=== PATIENT | female | born 1935 | race Caucasian/White ===

== ENCOUNTER 2020-11-18 22:29 | Inpatient (IN) | payer MEDICARE, BC ==
[~2020-11-18] VITALS: Ht 149.9 cm; Wt 51.7 kg
--- NOTE | 2020-11-18 22:35 | NUR ---
PT WAS BIBRA FOR C/O HIGH HR OF 150s. PT DENIED ANY CP OR SOB. WAS RECENTLY DISCHARGED FROM [facility] FOR CHF. A, OX4 , VERY PLEASANT AND RESPONSIVE TO ALL QUESTIONS. IN BED [address] ACED ON A MONITOR , EMT AT BED SIDE FOR ECG. DR BLUM AT BED SIDE FOR EVAL.
[2020-11-18] MEDS ORDERED: ADENOSINE 6 MG/2 ML VIAL ONE (22:45)
[2020-11-18 22:52] LABS: BASOPHILS # (AUTO) 0.1 /CMM (0.0-0.2); BASOPHILS % (AUTO) 1.2 % (0.0-2.0); EOSINOPHILS % (AUTO) 4.5 % (0.0-6.0); HEMATOCRIT 38 % (33-45); HEMOGLOBIN 12.3 g/dL (11.5-14.8); LYMPHOCYTES # (AUTO) 3.1 /CMM (0.8-4.8); LYMPHOCYTES % (AUTO) 36.8 % (20.0-44.0); MEAN CORPUSCULAR HGB CONC 33 g/dl (31.0-36.0); MEAN CORPUSCULAR VOLUME 94 fL (82-100); MONOCYTES # (AUTO) 0.7 /CMM (0.1-1.30); MONOCYTES % (AUTO) 8.6 % (2.0-12.0); NEUTROPHILS # (AUTO) 4.2 /CMM (1.8-8.9); NEUTROPHILS % (AUTO) 48.9 % (43.0-81.0); PLATELET COUNT (AUTO) 277 /CMM (150-450); RED BLOOD CELL COUNT(AUTO) 3.98 MIL/uL (4.0-5.2); WHITE BLOOD COUNT (AUTO) 8.5 K/uL (4.3-11.0)
[2020-11-18] MEDS ORDERED: DILTIAZEM HCL 25 MG IV ONE ×2 (22:52→22:55)
[2020-11-18] MEDS ORDERED: DILTIAZEM HCL 50 MG IV IV ONE (23:00)
[2020-11-18] MEDS ORDERED: ADENOSINE 6 MG/2 ML VIAL IVP ONE (23:00)
[2020-11-18] MEDS ORDERED: DILTIAZEM HCL IV 125 MG in IV NS 0.9% 100 ML IV PRN (23:00)
[2020-11-18 23:03] LABS: CALCIUM, SERUM 9.3 mg/dL (8.5-10.1); CARBON DIOXIDE 25 mmol/L (21-32); CHLORIDE 108 mmol/L (98-107); CREATININE 1.4 mg/dL (0.6-1.3); GLUCOSE 121 mg/dL (74-106); POTASSIUM 4.5 mmol/L (3.5-5.1); SODIUM SERUM 142 mmol/L (136-145); UREA NITROGEN, BLOOD 33 mg/dL (7-18)
--- NOTE | 2020-11-18 23:06 | NUR ---
RAD AT BED SIDE
--- NOTE | 2020-11-18 23:14 | NUR ---
PT IN BED SW/ SON AT BED SIDE. REPORTED FEELING BETTER. REMAINED ON CONT RETIREMENT VILLAGE MANAGER W/ IRREGULAR HEART RATE FLUCTUATING BETWEEN 60 TO 80s. WILL CONT TO MONITOR
[2020-11-18 23:15] LABS: ALANINE AMINOTRANSFERASE 22 U/L (12-78); ALBUMIN 3.2 g/dL (3.4-5.0); ALKALINE PHOSPHATASE 71 U/L (46-116); ASPARTATE AMINOTRANSFERASE 26 U/L (15-37); BILIRUBIN,DIRECT 0.2 mg/dL (0.0-0.2); BILIRUBIN,TOTAL 0.4 mg/dL (0.2-1.0); NT-PRO BNP 733 pg/mL (0-125); TOTAL PROTEIN, SERUM 6.9 g/dL (6.4-8.2)
--- NOTE | 2020-11-18 23:30 | NUR ---
LAB CALLED REGARDING NEGATIVE COVID RESULT.
--- NOTE | 2020-11-18 23:35 | NUR ---
115-1 IS THE BED THE PT WILL BE GOING TO PER RN PAINT MIXER MACHINE.
--- NOTE | 2020-11-18 23:42 | NUR ---
PANEL PAGED PER ER MD ORDER.
--- NOTE | 2020-11-19 00:02 | NUR ---
REPORT GIVEN TO VIVI
[2020-11-19] MEDS ORDERED: GLUT1POW MC (00:20)
[2020-11-19] MEDS ORDERED: MELA3TAB41 PO (00:20)
[2020-11-19] MEDS ORDERED: MONT10TA22 PO (00:20)
[2020-11-19] MEDS ORDERED: MULT237L4 PO (00:20)
[2020-11-19] MEDS ORDERED: OLME20TA13 PO (00:20)
[2020-11-19] MEDS ORDERED: IBAN150T16 PO (00:20)
[2020-11-19] MEDS ORDERED: UBID200C35 PO (00:20)
[2020-11-19] MEDS ORDERED: CYAN500T72 PO (00:20)
[2020-11-19] MEDS ORDERED: ATOR40TA PO (00:20)
[2020-11-19] MEDS ORDERED: POTA20TA83 PO (00:20)
[2020-11-19] MEDS ORDERED: ASPI-1169 PO (00:20)
[2020-11-19] MEDS ORDERED: FERR325T23 PO (00:20)
[2020-11-19] MEDS ORDERED: VITA-354 PO (00:20)
[2020-11-19] MEDS ORDERED: LORA10TA7 PO (00:20)
[2020-11-19] MEDS ORDERED: CHOL200059 (00:20)
[2020-11-19] MEDS ORDERED: FURO-145 PO (00:20)
--- NOTE | 2020-11-19 00:50 | NUR ---
pt was transferred to 115 under acls
[2020-11-19] MEDS ORDERED: ENOXAPARIN SODIUM 40 MG/0.4 ML DISP.SYRIN SQ SCH (01:00)
[2020-11-19] MEDS ORDERED: ACETAMINOPHEN 325 MG TABLET PO PRN (01:00)
[2020-11-19] MEDS ORDERED: ZOLPIDEM TARTRATE 5 MG TABLET PO PRN (01:00)
[2020-11-19] MEDS ORDERED: BUMETANIDE INJ 0.25 MG/ML VIAL IV ONE (01:00)
[2020-11-19] MEDS ORDERED: ONDANSETRON HCL/PF 4 MG/2 ML VIAL IVP PRN (01:00)
[2020-11-19] MEDS ORDERED: Z GUARD REMEDY 2 OZ OINT TP PRN (01:00)
--- NOTE | 2020-11-19 01:03 | NUR ---
WEBSPHERE ARCHITECT NOTE RECEIVED PT FROM ER WITH THE DX OF NEW ONSET OF A fIB BY FLAVIO BOUDREAUX. PT IS A/O X 4, NO SOB, NO DISTRESS OR DISCOMFORT NOTED. DENIES PAIN.. SKIN INTACT. SL IN LFA AND LAC INTACT AND PATENT. ORIENTED PT TO HER ROOM. ALL NEEDS ATTENDED. SIDE RAILS UP X 3 AND CALL LIGHT WITHIN REACH. VSS. CONTINUE TO MONITOR HER. Addendum: 11/19/20 at 0508 by VIVI BUSTILLO RN ON TELE SR WITH BBB AND PVC BIGEMINI. HR UP AND DOWN FROM 130 TO 64
[2020-11-19 01:42] LABS: THYROID STIMULATING HORMONE 2.239 uIU/mL (0.358-3.74)
--- NOTE | 2020-11-19 01:45 | NUR ---
NAVAL GUNFIRE SPOTTER NOTE PT ON TELE MONITOR SR AND AT TIME GO BACK TO RAPID HR . CONTINUE TO MONITORING. ADMITTING ORDERS CHECKED AND CARRIED OUT. PT ON CARDIZAM DRIP STARTED IN ER. 5MG /HR.
--- NOTE | 2020-11-19 01:56 | NUR ---
PIPE CLEANER NOTE INFORMED ALBERT BOUDREAUX B/P WENT DOWN TO 106/41 AND HR 63. PER TIME CONTINUE TO GIVEN BUMEX AND LOPRESSOR AND DC CARDIZEM DRIP. ORDER NOTED AND CARRIED OUT.
[2020-11-19 02:00] VITALS: BP 125/50
[2020-11-19] MEDS: METOPROLOL TARTRATE 50 MG TABLET PO SCH ×3 (02:00→21:11)
--- NOTE | 2020-11-19 02:27 | NUR ---
FULL STACK DEVELOPER NOTE PT FALL BACK TO SLEEP, NO DISTRESS OR DISCOMFORT NOTED. HR 88.
[2020-11-19 04:00] VITALS: BP 110/61
--- NOTE | 2020-11-19 04:55 | NUR ---
GREASE MAKER NOTE PT B/P GOES UP AND DOWN 84/52 AND RECHECKED AFTER 1/2 HR 110/61. ALBERT BOUDREAUX DNP MADE AWARE OF THAT.
--- NOTE | 2020-11-19 05:24 | NUR ---
DIRECTOR OF INVESTIGATIONS NOTE ALBERT BOUDREAUX DNP INFORMED REGARDING LOVENOX ORDER, WHICH PER PHARMACY SHOULD BE 30 MG DAILY DUE TO RENAL ISSUES. PER ALBERT BOUDREAUX GO AHEAD GIVEN ORIGNAL ORDER 40 MG BID. FOR NOW. INFORMED PHARMACY AGAIN.
--- NOTE | 2020-11-19 05:48 | NUR ---
ANESTHESIOLOGY FACULTY NOTE UNABLE TO CLARIFY THE MED WITH DR BOUDREAUX AND PHARMACY, DR BOUDREAUX WANTS PHARMACY TO CALL HIM. NUMBER GIVEN TO PHARMACY NEKELLY TO CALL DR BOUDREAUX. WILL FOLLOW UP.
[2020-11-19] MEDS ORDERED: ENOXAPARIN SODIUM 40 MG/0.4 ML DISP.SYRIN SQ ONE (06:00)
--- NOTE | 2020-11-19 06:42 | NUR ---
PIPE AND TEST SUPERVISOR NOTE PT IN BED LOVENOX 40 MG SQ GIVEN. WILL ENDORSE TO DAY SHIFT NURSE TO FOLLOW UP WITH PHARMACY. REGARDING LOVENOX. ON TELE MONITOR SR 74 WITH PVC .
[2020-11-19] MEDS: LOSARTAN POTASSIUM 50 MG TABLET PO SCH (09:00)
--- NOTE | 2020-11-19 09:21 | NUR ---
PRELIMINARY ECHO SHOWED EF 20%~. ADVISED RN.
[2020-11-19] MEDS: ASPIRIN 81 MG TAB.CHEW PO SCH (09:54)
[2020-11-19] MEDS: MONTELUKAST SODIUM (10MG) 10 MG TABLET PO SCH (09:54)
--- NOTE | 2020-11-19 10:33 | NUR ---
Informed MD Naqvi regarding patient's bp of 96/53 and hr of 61. Per MD to hold am dose of losartan and metoprolol. Infomred regarding EF results of Echocardiogram.
[2020-11-19 16:37] LABS: BILIRUBIN,URINE NEGATIVE (NEGATIVE); COLOR,URINE YELLOW (YELLOW); LEUKOCYTE ESTERASE ,URINE TRACE (NEGATIVE); NITRITE, URINE NEGATIVE (NEGATIVE); PH,URINE 6.5 (5.0-8.0); PROTEIN,URINE NEGATIVE (NEGATIVE); UGLUCOSE NEGATIVE (NEGATIVE); UROBILINOGEN,URINE 0.2 EU/dL (0.2)
[2020-11-19 16:44] LABS: BACTERIA,URINE Few /HPF (None Seen); HYALINE CASTS, URINE Few /LPF (None Seen); RBC,URINE 0-2 /HPF (0-2); SQUAMOUS EPITHELIAL CELL,UR Few /HPF (None Seen); WBC,URINE 0-2 /HPF (0-3)
[2020-11-19 16:46] LABS: CREATININE, URINE 51.6 MG/DL (30.0-125.0); URINE TOTAL PROTEIN 7.9 mg/dL (0-11.9)
--- NOTE | 2020-11-19 19:30 | NUR ---
RN OPENING NOTES: RECEIVED PT A/OX4 IN BED RESTING COMFORTABLY. PATIENT IN NO S/SX OF ACUTE DISTRESS AT THIS TIME. NO SOB NOTED. PATIENT'S BREATHING IS EVEN AND UNLABORED. PATIENT IS ON 2L OF OXYGEN VIA NC; TOLERATING WELL. PATIENT ON TELE MONITORING READING SINUS RHYTHM HR IS @60S AT THE TIME OF RECEIVED. PATIENT ON CARDIAC DIET; TOLERATES WELL. NOTED IV SITE ON L HAND #20 AND L FA #20; BOTH PATENT, INTACT AND FLUSHING WELL; NO S/S OF INFECTION OR INFILTRATION. PT AMBULATORY AND WITH BRP. SAFETY MEASURES HAVE BEEN PROVIDED AND IMPLEMENTED. PATIENT BED ALARM IS ON. HEAD OF BED ELEVATED. BED IS LOCKED, IN LOWEST POSITION AND SIDE RAILS UP. CALL LIGHT WITHIN REACH OF THE PATIENT. APPLICABLE ISOLATION PRECAUTIONS IN PLACE. WILL CONTINUE TO MONITOR AND REASSESS FOR ANY CHANGES AND WILL CARRY OUT ANY ONGOING AND ACTIVE MD ORDER.
--- NOTE | 2020-11-19 19:41 | NUR ---
RN CLOSING NOTES Patient is alert and oriented. Patient is breathing even and unlabored. No c/o pain or discomfort. Patient's urine collected during shift for UA. Bed is in lowest and locked position. No c/o chest pain or dizziness. Endorsed to next shift for yusuf and to keep patient NPO for michi scan imaging in am for stress test.
[2020-11-19 20:00] VITALS: BP 108/49
[2020-11-19] MEDS: LORATADINE 10 MG TABLET PO SCH (21:11)
[2020-11-19] MEDS: ATORVASTATIN 40 MG TABLET PO SCH (21:11)
--- NOTE | 2020-11-19 23:00 | NUR ---
RN NOTES NO CHANGE IN PATIENT CONDITION AT THIS TIME PATIENT VITALS STABLE, NO SIGNS OF ACUTE RESPIRATORY DISTRESS. QUALITY SYSTEMS ENGINEER MADE AWARE. WILL CONTINUE TO MONITOR AND REASSESS FOR ANY CHANGES THROUGHOUT THE SHIFT.
[2020-11-20] VITALS: BP 103/51
--- NOTE | 2020-11-20 | NUR ---
RN NOTES PT PUT ON NPO IN PREPARATION FOR AM PROCEDURE. PERSONNEL TECHNICIAN MADE AWARE. WILL CONTINUE TO MONITOR AND ASSESS THROUGHOUT THE SHIFT.
[2020-11-20 00:38] LABS: EOSINOPHIL,URINE None Seen
[2020-11-20 04:00] VITALS: BP 100/40
--- NOTE | 2020-11-20 04:00 | NUR ---
RN NOTES PATIENT REMAINS IN NO ACUTE RESPIRATORY DISTRESS AT THIS TIME, NO CHANGES TO CONDITION/STATUS. AM PATIENT CARE DONE. SENIOR MARKET INTELLIGENCE CONSULTANT WELL AWARE. WILL CONTINUE TO MONITOR AND REASSESS FOR ANY CHANGES THROUGHOUT THE SHIFT
[2020-11-20 06:44] LABS: BASOPHILS # (AUTO) 0.1 /CMM (0.0-0.2); BASOPHILS % (AUTO) 1.9 % (0.0-2.0); EOSINOPHILS % (AUTO) 7.9 % (0.0-6.0); HEMATOCRIT 36 % (33-45); HEMOGLOBIN 11.7 g/dL (11.5-14.8); LYMPHOCYTES # (AUTO) 2.4 /CMM (0.8-4.8); LYMPHOCYTES % (AUTO) 35.6 % (20.0-44.0); MEAN CORPUSCULAR HGB CONC 33 g/dl (31.0-36.0); MEAN CORPUSCULAR VOLUME 95 fL (82-100); MONOCYTES # (AUTO) 0.5 /CMM (0.1-1.30); NEUTROPHILS # (AUTO) 3.2 /CMM (1.8-8.9); NEUTROPHILS % (AUTO) 47.6 % (43.0-81.0); PLATELET COUNT (AUTO) 260 /CMM (150-450); RED BLOOD CELL COUNT(AUTO) 3.73 MIL/uL (4.0-5.2); WHITE BLOOD COUNT (AUTO) 6.8 K/uL (4.3-11.0)
[2020-11-20 06:52] LABS: ALBUMIN 2.9 g/dL (3.4-5.0); BILIRUBIN,TOTAL 0.6 mg/dL (0.2-1.0); CALCIUM, SERUM 9.3 mg/dL (8.5-10.1); CREATININE 1.2 mg/dL (0.6-1.3); MAGNESIUM 2.1 mg/dL (1.8-2.4); POTASSIUM 4.1 mmol/L (3.5-5.1); TOTAL PROTEIN, SERUM 6.4 g/dL (6.4-8.2)
--- NOTE | 2020-11-20 06:57 | NUR ---
RN CLOSING NOTE: PATIENT REMAINS IN ROOM IN NO SIGNS OF RESPIRATORY DISTRESS, PATIENT STILL ON 2L OF O2 VIA NC;TOLERATING WELL SATURATING @ >95% SP02. SAFETY MEASURES IMPLEMENTED, BED IN LOWEST POSITION, LOCKED, SIDE RAILS UP, CALL LIGHT WITHIN REACH. ALL NEEDS AND ORDERS ADDRESSED DURING THE SHIFT. IV ACCESS MAINTAINED INTACT, SECURED AND FLUSHING WELL. ALL DUE MEDS GIVEN ORDERED & SCHEDULED ; PATIENT TOLERATED WELL. PATIENT KEPT CLEAN AND COMFORTABLE WITHIN THE SHIFT. PATIENT ENDORSED TO INCOMING SHIFT RN WITH STABLE VITAL SIGN AND FOR CONTINUITY OF CARE.
--- NOTE | 2020-11-20 07:30 | NUR ---
RN OPENING NOTES Patient is alert and oriented. Patient is breathing even and unlabored. No c/o pain or discomfort. Bed is in lowest and locked position. No c/o chest pain or dizziness. Patient to be NPO for LEXISCAN Stress test. Will monitor. Call light with in reach.
[2020-11-20 08:00] VITALS: BP 110/46
[2020-11-20] MEDS ORDERED: REGADENOSON 0.4 MG/5 ML DISP.SYRIN IVP ONE (08:00)
[2020-11-20] MEDS: ASPIRIN 81 MG TAB.CHEW PO SCH (09:00)
[2020-11-20] MEDS ORDERED: ENOXAPARIN SODIUM 30 MG/0.3 ML DISP.SYRIN SQ SCH (09:00)
--- NOTE | 2020-11-20 10:00 | NUR ---
Patient is out of the unit for michi scan test and was taken at apprx 9:50 am in stable condition. No c/o chest pain or dizziness. Vitals WNL. Addendum: 11/20/20 at 1028 by LILIANE NEWMAN RN Amended: Links added.
[2020-11-20] MEDS: LOSARTAN POTASSIUM 50 MG TABLET PO SCH (11:37)
[2020-11-20] MEDS: MONTELUKAST SODIUM (10MG) 10 MG TABLET PO SCH (11:38)
[2020-11-20] MEDS: METOPROLOL TARTRATE 50 MG TABLET PO SCH ×2 (11:40→21:56)
--- NOTE | 2020-11-20 11:56 | NUR ---
patient came back to unit vitals assessed and noted with HR of 127. Informed MD Naqvi and DENNIS Burrell.Patient given her morning meds for BP AND HR.Patient monitored closely.
[2020-11-20 12:00] VITALS: BP 104/61
[2020-11-20] MEDS ORDERED: DILTIAZEM HCL IV 125 MG in IV NS 0.9% 100 ML IV PRN (12:00)
[2020-11-20] MEDS: APIXABAN 5 MG TABLET PO SCH ×2 (13:56→21:57)
--- NOTE | 2020-11-20 14:35 | NUR ---
Patient started on cardizem drip per md Naqvi's orders for Afib with RVR
--- NOTE | 2020-11-20 15:34 | NUR ---
Patient noted with bp of 88/55, hr of 112 and 02 sat of 96% on 2liters of 02. Informed Dr Naqvi regarding patient's tele readings of sinus tachy and bp. Per md to hold cardizem drip for now. Medication held
[2020-11-20 16:00] VITALS: BP 96/54
--- NOTE | 2020-11-20 19:24 | NUR ---
RN CLOSING NOTES Patient is alert and oriented. Patient is breathing even and unlabored. No c/o pain or discomfort. Bed is in lowest and locked position. No c/o chest pain or dizziness, Patient is SR on tele with HR of 100bpm. Endorsed to next shift for PEPITO. Bed is in lowest and locked position. Cardizem drip on hold.
--- NOTE | 2020-11-20 19:30 | NUR ---
RN OPENING NOTES: RECEIVED PT A/OX4 IN BED RESTING COMFORTABLY. PATIENT IN NO S/SX OF ACUTE DISTRESS AT THIS TIME. NO SOB NOTED. PATIENT'S BREATHING IS EVEN AND UNLABORED. PATIENT IS ON 2L OF OXYGEN VIA NC; TOLERATING WELL. PATIENT ON TELE MONITORING READING SINUS RHYTHM HR IS @60S AT THE TIME OF RECEIVED. PATIENT ON CARDIAC DIET; TOLERATES WELL. NOTED IV SITE ON L HAND #20 AND L FA #20; BOTH PATENT, INTACT AND FLUSHING WELL; NO S/S OF INFECTION OR INFILTRATION. CARDIZEM DRIP ON HOLD AT THIS TIME (MD AWARE). PT AMBULATORY AND WITH BRP. SAFETY MEASURES HAVE BEEN PROVIDED AND IMPLEMENTED. PATIENT BED ALARM IS ON. HEAD OF BED ELEVATED. BED IS LOCKED, IN LOWEST POSITION AND SIDE RAILS UP. CALL LIGHT WITHIN REACH OF THE PATIENT. APPLICABLE ISOLATION PRECAUTIONS IN PLACE. WILL CONTINUE TO MONITOR AND REASSESS FOR ANY CHANGES AND WILL CARRY OUT ANY ONGOING AND ACTIVE MD ORDER.
[2020-11-20 20:00] VITALS: BP 108/51
[2020-11-20] MEDS: LORATADINE 10 MG TABLET PO SCH (21:56)
[2020-11-20] MEDS: ATORVASTATIN 40 MG TABLET PO SCH (21:56)
--- NOTE | 2020-11-20 23:00 | NUR ---
RN NOTES NO CHANGE IN PATIENT CONDITION AT THIS TIME PATIENT VITALS STABLE, NO SIGNS OF ACUTE RESPIRATORY DISTRESS. HAZARDOUS WASTE REMOVER MADE AWARE. WILL CONTINUE TO MONITOR AND REASSESS FOR ANY CHANGES THROUGHOUT THE SHIFT.
[2020-11-21] VITALS: BP 109/56
--- NOTE | 2020-11-21 03:00 | NUR ---
RN NOTES PATIENT REMAINS IN NO ACUTE RESPIRATORY DISTRESS AT THIS TIME, NO CHANGES TO CONDITION/STATUS. AM PATIENT CARE DONE. SPECIAL WEAPONS AND TACTICS OFFICER WELL AWARE. WILL CONTINUE TO MONITOR AND REASSESS FOR ANY CHANGES THROUGHOUT THE SHIFT
[2020-11-21 04:00] VITALS: BP 114/42
--- NOTE | 2020-11-21 07:30 | NUR ---
RN OPENING NOTE PT A/Ox4, LAYING SEMIFOWLERS IN BED BREATHING NC 2LPM, NO S/S OF RESP DISTRESS OR SOB. PT DENIES PAIN. PT SB - SR 50s TO 60s, NO DISTRESS NOTED. PT HAS LT HAND #20 AND LFA #20 IV ACCESS, BOTH FLUSHED, PATENT AND INTACT, NO S/S OF INFILTRATION OR INFECTION, CURRENTLY SL. PT ABLE TO AMBULATE WITH ASSISTANCE, KNOWS TO USE CALL VELASQUEZ FOR HELP. ALL PT SAFETY PRECAUTIONS IN PLACE, WILL CONT TO MONITOR
[2020-11-21 08:00] VITALS: BP 102/47
[2020-11-21 08:06] LABS: PTH, INTACT 36 pg/mL (15-65)
--- NOTE | 2020-11-21 08:55 | NUR ---
RN NOTE PER DENNIS JACINTO, OK TO GIVE PT METOPROLOL 50MG
[2020-11-21] MEDS: ASPIRIN 81 MG TAB.CHEW PO SCH (09:42)
[2020-11-21] MEDS: METOPROLOL TARTRATE 50 MG TABLET PO SCH (09:43)
[2020-11-21] MEDS: APIXABAN 5 MG TABLET PO SCH (09:43)
[2020-11-21] MEDS: MONTELUKAST SODIUM (10MG) 10 MG TABLET PO SCH (09:43)
[2020-11-21 11:07] LABS: *SPE ALBUMIN 3.1 g/dL (2.9-4.4); *SPE ALPHA-1-GLOBULIN 0.3 g/dL (0.0-0.4); *SPE BETA GLOBULIN 0.9 g/dL (0.7-1.3); *SPE GLOBULIN, TOTAL 3.1 g/dL (2.2-3.9); *SPE M-SPIKE Not Observed g/dL (Not Observed); *SPEGAMMA GLOBULIN 0.9 g/dL (0.4-1.8)
[2020-11-21 12:00] VITALS: BP 114/42
[2020-11-21] MEDS ORDERED: AMIO200T5 PO (13:45)
[2020-11-21] MEDS ORDERED: APIX5TAB PO (13:45)
[2020-11-21 16:00] VITALS: BP 123/47
--- NOTE | 2020-11-21 17:00 | NUR ---
RN NOTE PT DISCHARGED IN STABLE CONDITION. PT GOING HOME WITH SON IN PRIVATE CAR. ALL PERSONAL BELONGINGS WITH PT
== END 2020-11-21 17:03 | disposition home health service (06) | DRG 280 ==
LOC: ER 22:31 → TELE-TD 23:38 → TELE1 11-19 03:28
PROVIDERS: ADMIT Nurse Practitioner Acute Care; ATTEND Registered Nurse
DX: I48.0 Paroxysmal atrial fibrillation (principal); N17.0 Acute kidney failure with tubular necrosis; I21.A1 Myocardial infarction type 2; I50.43 Acute on chronic combined systolic (congestive) and diastolic (congestive) heart failure; D68.59 Other primary thrombophilia; J98.11 Atelectasis; J45.909 Unspecified asthma, uncomplicated; I11.0 Hypertensive heart disease with heart failure; Z20.822 Contact with and (suspected) exposure to COVID-19; Z88.5 Allergy status to narcotic agent; Z91.041 Radiographic dye allergy status; E78.5 Hyperlipidemia, unspecified; I25.10 Atherosclerotic heart disease of native coronary artery without angina pectoris; N13.9 Obstructive and reflux uropathy, unspecified; I70.0 Atherosclerosis of aorta; I13.10 Hypertensive heart and chronic kidney disease without heart failure, with stage 1 through stage 4 chronic kidney disease, or unspecified chronic kidney disease; N18.9 Chronic kidney disease, unspecified; Z95.1 Presence of aortocoronary bypass graft; I49.3 Ventricular premature depolarization; I95.9 Hypotension, unspecified
CPT/HCPCS: 36415; 71045-TC; 76770-TC; 80048-TC; 80053-TC; 80061-TC; 80076-TC; 81001; 82550-TC; 82570-TC; 83735-TC; 83880; 83970; 84100-TC; 84155; 84155-TC; 84165; 84300-TC; 84443-TC; 84484-TC; 85025-TC; 85730-TC; 87081-TC; 93307-TC; A9502; C9803; G0378; J0153; J1650; J2785; J3490; J7030; J7050